=== PATIENT | female | born 1970 | race Caucasian/White ===

== ENCOUNTER 2025-04-16 13:42 | Emergency (ER) | payer OTHER, SELFPAY ==
[2025-04-16 13:49] VITALS: BP 129/86
[2025-04-16 14:24] LABS: % Basophils 0.6 % (0-2); % Eosinophils 0.2 % (0-6); % Immature Granulocytes 0.2 % (0-0.5); % Lymphocytes 20.6 % (20.5-51.1); % Monocytes 6.4 % (1.7-9.3); Absolute Basophils 0.1 10^3/uL (0-0.2); Absolute Lymphocytes 1.7 10^3/uL (1.2-3.4); Absolute Monocytes 0.5 10^3/uL (0.1-0.6); Absolute Neutrophils 6.1 10^3/uL (1.4-6.5); Hematocrit 44.6 % (37.0-47.0); Hemoglobin 15.3 g/dL (12.0-16.0); Mean Corp Hgb Conc. 34.3 g/dL (33.0-37.0); Mean Corpuscular Hgb 29.5 pg (27.0-31.0); Mean Corpuscular Volume 85.9 fL (81.0-99.0); Mean Platelet Volume 11.4 fL (7.4-10.4); Nucleated Red Blood Cells % 0 %; Platelet Count 188 10^3/uL (130-400); Red Blood Cell Count 5.19 10^6/uL (4.20-5.40); Red Cell Dist. Width 12.7 % (11.5-14.5); White Blood Cell Count 8.5 10^3/uL (4.8-10.8)
[2025-04-16 14:47] LABS: ALT (SGPT) 22 U/L (0-35); AST (SGOT) 24 U/L (14-36); Albumin 5.2 g/dl (3.5-5.0); Alkaline Phosphatase 61 U/L (38-126); Blood Urea Nitrogen 16 mg/dl (7-17); Calcium 10.1 mg/dl (8.4-10.2); Carbon Dioxide 28 mmol/L (22-30); Chloride 103 mmol/L (98-107); Glucose 93 mg/dl (70-99); Potassium 3.7 mmol/L (3.5-5.1); Sodium 140 mmol/L (135-145); Total Bilirubin 0.6 mg/dl (0.2-1.3); Total Protein 8.2 g/dl (6.3-8.2); eGFR > 60.00
--- NOTE | 2025-04-16 15:47 | ED.GENMED ---
History of Present Illness
General
Chief Complaint: Dizziness
Source: patient
Exam Limitations: none
Time Seen by Provider: 04/16/25 15:08
Nursing documentation reviewed up to this point in time: agreed with
History of Present Illness
History of Present Illness:
Patient is a 54-year-old female with history of M�ni�re's presents to the ER for evaluation. Patient reports for the past 2 to 3 weeks she has felt intermittently dizzy woozy sensation but denies room spinning sensation. Intermittently with the
dizziness she has had intermittently sensation of a hot flush left facial cheek that becomes red at times. At times the last 4 hours she feels very nauseous and loses her appetite with this. Currently she does feel a warm sensation to the left
side of her face and her left facial cheek is red. She denies any actual chest pain shortness of breath recent injury fever chills.
She denies any associated headache. She did see her family doctor when and was diagnosed with possible ear infection started on steroid pack and amoxicillin.
She reports that this type of dizziness feels a little different than her M�ni�re's and she has not had a M�ni�re's issue in years. She does take Maxide daily.
Phy Exam
General Physical Exam
General Presentation: no apparent distress
General age: appears stated age
General Skin: warm and dry
General Habitus: normal
General Mental: alert
General Hydration: appears well hydrated
ENT Exam
ENT Exam: EOMI, TM's normal and neck supple
Eye Exam
Eye Exam: PERRL and EOMI
Eye Exam General: PERRL: bilateral and EOM intact: bilateral
Pupil Exam: Bilateral: round and reactive
Cardiovascular Exam
Cardiovascular Exam: regular rate/rhythm, no murmur and normal peripheral pulses
Pulmonary Exam
Pulmonary Exam: lungs clear and no respiratory distress
Neurological Exam
Neurological Exam: alert, oriented x3, no motor deficits, no sensory deficits and other (Normal sensation to bilateral face arms and legs)
Cerebellar
Cerebellar Function: normal finger to nose
Musculoskeletal Exam
Musculoskeletal Exam: full ROM
Skin Exam
Skin Exam: normal color, warm/dry and other (left face appears mildly flushed )
Psychiatric Exam
Psychiatric Exam: normal mood/affect
Course
Orders/Labs/Results
Orders:
Orders
04/16/25 13:44
EKG [Electrocardiogram (*1)] Urgent
Reason for Study: Vertigo / Dizzy
04/16/25 13:45
EKG- Treatment ONCE
04/16/25 13:52
CT Head W/o Iv Contrast Urgent
Comment:
Reason For Exam: dizziness
04/16/25 13:58
Complete Blood Count/With Diff Urgent
Comprehensive Metabolic Panel Urgent
Abnormal Lab Results
04/16/25
13:58
MPV 11.4 H fL
(7.4-10.4)
Albumin 5.2 H g/dl
(3.5-5.0)
04/16/25 13:58
04/16/25 13:58
Vital Signs
Initial and Last Documented VS:
Initial Vital Signs
Temp Pulse Resp BP Pulse Ox
98.0 F 77 20 129/86 98
04/16/25 13:49 04/16/25 13:49 04/16/25 13:49 04/16/25 13:49 04/16/25 13:49
Last Documented Vital Signs
Temp Pulse Resp BP Pulse Ox
98.0 F 77 20 129/86 98
04/16/25 13:49 04/16/25 13:49 04/16/25 13:49 04/16/25 13:49 04/16/25 13:49
Fleet Coordinator consulted with Physician
Fleet Coordinator consulted with physician?: Yes
Name of Physician Consulted: Erasmo
MDM/Problems Addressed
MDM/Problems Addressed:
As documented patient is a 54-year-old presented with facial flushing and redness for the past couple weeks. She presents here awake alert no acute distress she does complain of some dizziness however denies any vertigo with the symptoms. She is
afebrile denies any recent illness. She has no focal deficits and is nontoxic on exam. Left sided face with mild flushing on exam no swelling. normal equal facial senation.
unremarkable CAT scan unremarkable. She has additional blood work scheduled by her family doctor but did not get that done yet. No definitive diagnosis patient will need continued workup. However note there are no acute concerning findings on
patient's workup in the ER.
I did encourage her to continue to follow-up with family doctor for further evaluation
*Radiology
Radiology exam reviewed: radiology read reviewed
*Pulse Oximetry
Patient hypoxic: no
*Critical Care Note
Total Time (30-74mins, 75-104mins- exclusive of procedures): Not Applicable
ED Attending Note
-
Portions of this chart may have been created with voice recognition software.� Occasional wrong word or��sound alike� substitutions may have occurred due to the inherent limitations of voice recognition software.
Discharge Plan
Departure
Patient Disposition: Home (Routine Discharge)
Date of Disposition: 04/16/25
Time of Disposition: 17:04
Patient with high blood pressure during this ER visit?: Yes
Condition: Fair
Covid-19: Not Applicable
Discharge Problem:
Facial flushing
Instructions: Dizziness, BLOOD PRESSURE
Referrals:
Tawnya Martell PA-C [Family Provider]
Activity Restrictions/Additional Instructions:
As discussed your workup here in the ER was unremarkable however you will need to continue to follow-up with your family doctor for additional testing/evaluation for further diagnosis and causes of your symptoms including dizziness and facial
flushing.
Return if any worsening of symptoms
Interventions
Interventions:
*General Assessment Last Done: 04/16/25 13:49
ED- Neurological Assessment Last Done: 04/16/25 15:15
ED- Cardiac Assessment Last Done: 04/16/25 15:15
Discharge Date and Time
Print Language: MONGOLIAN
[2025-04-16 17:11] VITALS: BP 122/60
== END 2025-04-16 17:12 | disposition home or self-care (01) ==
LOC: EMR 13:42
PROVIDERS: Emergency Medicine; EMERGENCY PHYSICIAN Student in an Organized Health Care Education/Training Program; FAMILY PHYSICIAN Physician Assistant Medical
DX: R23.2 Flushing (principal); R42 Dizziness and giddiness; R11.0 Nausea; R20.2 Paresthesia of skin; R03.0 Elevated blood-pressure reading, without diagnosis of hypertension; Z79.899 Other long term (current) drug therapy
CPT/HCPCS: 99284; 70450; 80053; 85025; 93005